=== PATIENT | female | born 1985 | race Caucasian/White ===

== ENCOUNTER → 2019-06-06 | Day surgery (SDC) | payer OTHER ==
[2019-06-03 13:12] LABS: BASOPHILS # (AUTO) 0.1 (0.0-0.1); BASOPHILS % 0.9 % (0.0-1.0); EOSINOPHILS # (AUTO) 0.7 (0.0-0.4); EOSINOPHILS % 8.7 % (0.0-6.0); HEMOGLOBIN 13.4 g/dL (12.0-16.0); LYMPHOCYTES # (AUTO) 2.5 (1.0-3.2); LYMPHOCYTES % 32.8 % (18.0-39.1); MEAN CORPUSCULAR HEMOGLOBIN 29.3 pg (28-32); MEAN CORPUSCULAR HGB CONC 31.9 g/dL (31-35); MEAN CORPUSCULAR VOLUME 91.7 fL (81-99); MONOCYTES # (AUTO) 0.5 (0.2-0.8); MONOCYTES % 7.1 % (4.4-11.3); NEUTROPHILS # (AUTO) 3.8 (2.1-6.9); NEUTROPHILS % 50.2 % (38.7-80.0); PLATELET COUNT 425 x10e3/uL (140-360); RED BLOOD COUNT 4.58 x10e6/uL (3.6-5.1); RED CELL DISTRIBUTION WIDTH 12.5 % (11.7-14.4)
[2019-06-03 13:29] LABS: ANION GAP 12.1 mmol/L (8-16); BLOOD UREA NITROGEN 6 mg/dL (7-26); BUN/CREATININE RATIO 8 (6-25); CALCIUM 9.5 mg/dL (8.4-10.2); CARBON DIOXIDE 28 mmol/L (22-29); CHLORIDE 101 mmol/L (98-107); CREATININE, SERUM 0.71 mg/dL (0.57-1.11); EST GLOMERULAR FILTRATION RATE > 60 ML/MIN (60-); GLUCOSE 87 mg/dL (74-118); POTASSIUM 4.1 mmol/L (3.5-5.1); SODIUM 137 mmol/L (136-145)
--- NOTE | 2019-06-03 13:42 | Diagnostic Imaging Report ---
EXAMINATION: CHEST 2 VIEWS INDICATION: Preoperative COMPARISON: None FINDINGS: TUBES and LINES: None. LUNGS: The lung volumes are normal. No focal consolidation or pulmonary edema. PLEURA: No pleural effusion or pneumothorax. HEART AND MEDIASTINUM: The cardiomediastinal silhouette is normal in size and contour. BONES AND SOFT TISSUES: No acute fracture or dislocation. UPPER ABDOMEN: No free air under the diaphragm. IMPRESSION: No focal pneumonia or pulmonary edema. Signed by: Israel Singh MD on 06/03/2019 1:38 PM
[~2019-06-06] MED LIST: ACETAMINOPHEN 1000 MG/100 ML IV ONE; BUPIVACAINE HCL 0.5% INJ 30 ML VIAL INJ ONE; CEFAZOLIN SOD 1 GM/NS 50ML 100 ML IV ONE; DEXAMETHASONE SOD PHOS INJ 4 MG/ML VIAL ONE; FENTANYL CITRATE/PF 100MCG/2 ML INJ ONE; HYDROCODONE/APAP 10MG-325MG TAB ONE; LIDOCAINE HCL 2% LOCAL INJ 5 ML SDV VIAL INJ ONE; MIDAZOLAM HCL 2 MG/2 ML VIAL ONE; NEOSTIGMINE 1 MG/ML 10ML VIAL ONE; ONDANSETRON HCL INJ 2MG/ML 2ML 2 MG/ML VIAL ONE; PROPOFOL IV EMULSION 10 MG/ML 20 ML VIAL ONE; SEVOFLURANE INHAL SOLN 250 ML PEN BTL ONE
[2019-06-06 12:14] VITALS: BP 124/80
--- OUTSIDE RECORDS SUMMARY | 2019-06-09 12:31 | XMS REPORT | Clinical Summary ---
Author Author [facility] Organization [facility] Address Unknown Phone Unavailable Care Team Providers Care Guest Attendant Name Role Phone Daysi Limon MD PCP Allergies Comments Active Allergy Reactions Severity Noted Date vomitting Aspirin GI Medium 09/12/2016 Intolerance Medications End Date Status Medication Sig Dispensed Refills Start Date Active ibuprofen (ADVIL) 200 MG Take 200 mg 0 tablet by mouth every 6 (six) hours as needed for mild pain. 03/13/2019 Discontinued acetaminophen-codeine TK 1 T PO Q 0 (TYLENOL WITH CODEINE #3) 4 TO 6 H PRN 7 300-30 mg per tablet FOR DENTAL PAIN Active Problems Problem Noted Date Unintentional weight loss 11/05/2017 Overview: C/O 10 lbs weight loss over 1 year- unintentional weight loss denies pain, fever, nausea, vomitting, dizziness, SOB, Cough ,CP,headaches or any other symptoms Reports Increased Thirst and urination- drinks diet coke every day 4-5 cans does not drink water Smokes 5-6 cigarettes daily No exercise or dietary modification, Hr brother recently got diagnosed with Diabetes in his 30's and she is concerned she may have Diabetes. Last Assessment & Plan: Check Labs, advised to stop drinking sodas, switch to drinking water recommended Smoking Cessation POC finger stick- 92 Current smoker 11/05/2017 Overview: Smokes 5-6 cigarettes for last 23 years Denies cough, SOB, CP, Wheezing L ast Assessment & Plan: counselled on Smoking Cessation and patient is ready to quit but refused medications at this time all risks/ benefits of smoking discussed with patient and she wants to try cessation without use of medication at this time. 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 Obstructive sleep apnea syndrome 09/12/2016 Sleep disorder 09/12/2016 Encounters Care Team Description Date Type Specialty Daysi Limon MD Thoracogenic scoliosis of thoracic region (Primary Dx); Chronic midline thoracic back pain; Acute nonintractable headache, unspecified headache type; Obesity (BMI 30.0-34.9) 03/13/2019 Office Visit Family Medicine after 06/08/2018 Immunizations Name Dates Previously Given Next Due Hep B, Unspecified 11/26/2006 Family History Medical History Relation Name Comments Diabetes type II Brother Kar Banerjee No Known Problems Father Hypertension Mother Relation Name Status Comments Brother Kar Banerjee Alive Father Alive Mother Alive Social History Date Tobacco Use Types Packs/Day Years Used Quit: 10/24/2016 Current Every Day Smoker Cigarettes 0.25 22 Smokeless Tobacco: Never Used Tobacco Cessation: Ready to Quit: Yes; Counseling Given: Yes Comments: Patient states she is a social smoker. Alcohol Use Drinks/Week oz/Week Comments No Sex Assigned at Date Recorded Not on file Industry Job Start Date Occupation Not on file Not on file Not on file Travel End Travel History Travel Start No recent travel history available. Last Filed Vital Signs Time Taken Vital Sign Reading 03/13/2019 11:37 AM CDT Blood Pressure 121/75 03/13/2019 11:37 AM CDT Pulse 75 03/13/2019 11:37 AM CDT Temperature 36.8 C (98.2 F) 03/13/2019 11:37 AM CDT Respiratory Rate 16 03/13/2019 11:37 AM CDT Oxygen Saturation 99% - Inhaled Oxygen - Concentration 03/13/2019 11:37 AM CDT Weight 93 kg (205 lb) 03/13/2019 11:37 AM CDT Height 165.1 cm (5' 5") 03/13/2019 11:37 AM CDT Body Mass Index 34.11 Plan of Treatment Health Maintenance Due Date Last Done Comments INFLUENZA VACCINE 06/26/2019 Results Not on fileafter 06/08/2018 Insurance Type Payer Benefit Subscriber ID Effective Phone Address Plan / Dates Group xxxxxxxxx 2019- [facility] Advance Directives Patient has advance care planning documents on file. For more information, hakeem thakkar contact: Ryan Hernández [address] [place] [address]
--- OUTSIDE RECORDS SUMMARY | 2019-06-09 12:32 | XMS REPORT | Continuity of Care Document ---
Author Author [employer] Address Unknown Phone Unavailable Care Team Providers Care Day Camp Unit Leader Name Role Phone Practice Management e-Tools Information [employer] Unavailable Unavailable Problems Problem Status Onset Date Classification Date Reported Comments Source Influenza-like symptoms 09/30/2017 Diagnosis 10/04/2017 [facility] Exposure to Influenzavirus 09/30/2017 Diagnosis 10/04/2017 [facility] Headache 09/30/2017 Diagnosis 10/04/2017 [facility] Acute upper respiratory infection 07/05/2016 Diagnosis 07/05/2016 [facility] Allergic rhinitis 07/05/2016 Diagnosis 07/05/2016 [facility] Smoker Problem 10/04/2017 [facility] Otitis Media Problem 10/04/2017 [facility] Acute Upper Respiratory Infection Problem 10/04/2017 [facility] Allergic Rhinitis Problem 10/04/2017 [facility] Influenza Problem 10/04/2017 [facility] Medications Medication Details Route Status Patient Instructions Ordering Provider Order Date Source Oseltamivir 75 MG Oral Capsule [Tamiflu] Tamiflu 75 mg capsule Take 1 capsule(s) twice a day by oral route for 5 days. Active [facility] Amoxicillin 500 MG Oral Capsule amoxicillin 500 mg capsule TAKE ONE CAPSULE BY MOUTH EVERY 6 HOURS UNTIL ALL TAKEN Active [facility] Brompheniramine Maleate 0.4 MG/ML / Dextromethorphan Hydrobromide 2 MG/ML / Pseudoephedrine Hydrochloride 6 MG/ML Oral Solution [Bromfed DM] Bromfed DM 2 mg-30 mg-10 mg/5 mL syrup Take 10 mL every 6 hours by oral route as needed for cough. Active [facility] chlorhexidine gluconate 1.2 MG/ML Mouthwash chlorhexidine gluconate 0.12 % mouthwash RINSE AND SWISH WITH 1/2 OZ. USE 2 TIMES PER DAILY AFTER THOFOUGH BRUSHING Active [facility] Fluticasone propionate 0.05 MG/ACTUAT Metered Dose Nasal [place] fluticasone 50 mcg/actuation nasal spray,suspension USE 2 SPRAYS INTO EACH NOSTRIL EVERY DAY Active [facility] Acetaminophen 300 MG / Hydrocodone Bitartrate 5 MG Oral Tablet hydrocodone 5 mg-acetaminophen 300 mg tablet TAKE 1 TABLET BY MOUTH EVERY 4 TO 6 HOURS NEEDED FOR PAIN Active [facility] Sodium Fluoride 0.011 MG/MG Toothpaste [Prevident] PreviDent 5000 Booster Plus 1.1 % dental paste APPLY TO TOOTHBRUSH & BRUSH TEETH FOR 1 MIN, SPIT OUT EXCESS & DO NOT RINSE EAT OR DRINK FOR 30 MIN Active [facility] levocetirizine dihydrochloride 5 MG Oral Tablet [Xyzal] Xyzal 5 mg tablet Take 1 tablet(s) every day by oral route for 30 days. Active [facility] Brompheniramine Maleate 0.4 MG/ML / Dextromethorphan Hydrobromide 2 MG/ML / Pseudoephedrine Hydrochloride 6 MG/ML Oral Solution urhufkspibewwwm-vezqzqknfsbmyto-AV 2 mg-30 mg-10 mg/5 mL syrup GIVE 2 TEASPOONFUL BY MOUTH EVERY 6 HOURS NEEDED Active [facility] levocetirizine dihydrochloride 5 MG Oral Tablet levocetirizine 5 mg tablet TAKE 1 TABLET BY MOUTH EVERY DAY Active [facility] Oseltamivir 75 MG Oral Capsule oseltamivir 75 mg capsule Take 1 capsule every day by oral route as directed for 10 days. Active [facility] Allergies, Adverse Reactions, Alerts Substance Category Reaction Severity Reaction type Status Date Reported Comments Source Aspirin Vomiting Mild to Moderate Allergy to substance 09/19/2013 [facility] Immunizations No Data Provided for This Section Results Order Name Results Value Reference Range Date Interpretation Comments Source Influenza A negative 09/30/2017 [facility] Influenza B negative 09/30/2017 [facility] Influenza A positive 03/29/2016 [facility] Influenza B negative 03/29/2016 [facility] Pathology Reports No Data Provided for This Section Diagnostic Reports No Data Provided for This Section Consultation Notes No Data Provided for This Section Discharge Summaries No Data Provided for This Section History and Physicals No Data Provided for This Section Vital Signs Vital Sign Value Date Comments Source Diastolic (mm Hg) 80 09/30/2017 [facility] Height 64 09/30/2017 [facility] Systolic (mm Hg) 120 09/30/2017 [facility] Weight 163 09/30/2017 [facility] Diastolic (mm Hg) 82 07/05/2016 [facility] Height 64 07/05/2016 [facility] Systolic (mm Hg) 125 07/05/2016 [facility] Weight 195 07/05/2016 [facility] Diastolic (mm Hg) 87 03/29/2016 [facility] Height 67 03/29/2016 [facility] Systolic (mm Hg) 132 03/29/2016 [facility] Weight 185 03/29/2016 [facility] Encounters Location Location Details Encounter Type Encounter Number Reason For Visit Attending Provider ADM Date DC Date Status Source [place] - [facility] - [id number] Iris Tidwell, METAL ENGRAVER: [address] [facility] [place] [address], Ph. [id number] Iris Tidwell 03/29/2016 [facility] [place] [facility] - [id number] Clarisa Chalo, METAL ENGRAVER: [address], [place] [address], Ph. [id number] Clarisa Chalo 07/05/2016 [facility] [place] [facility] - [id number] Lora Snow, METAL ENGRAVER-C: [address] [place] [address], Ph. [id number] Lora Snow 09/30/2017 [facility] [place] - [facility] - [id number] Lora Snow, METAL ENGRAVER-C: [address] [place] [address], Ph. [id number] Lora Snow 09/30/2017 [facility] Procedures No Data Provided for This Section Assessment and Plan No Data Provided for This Section Plan of Care No Data Provided for This Section Social History Social History Date Source Smoking Status Current Every Day Smoker 09/19/2013 [facility] Family History No Data Provided for This Section Advance Directives No Data Provided for This Section Functional Status No Data Provided for This Section
--- OUTSIDE RECORDS SUMMARY | 2019-06-09 12:32 | XMS REPORT | Encounter Summary ---
Author Organization Unknown Address [address] [place] [address] Phone [phone] Reason for Visit Medical Complaint Instructions 1. Influenza-like symptoms rapid flu (A+B) 2. Exposure to Influenzavirus oseltamivir 75 mg capsule 3. Headache headache: care instructions Discussion Note Pt is in NAD; Verbalizes understanding of all instructions with no questions at this time. Plan of Care Patient Instructions Alternate with Ibuprofen and acetaminophen every 4hrs as needed for fever/headache. Proper hydration and rest. Return to school of fever free for 24 hrs. Start oseltamivir as directed for influenza exposure. In case of an emergency call 911 or go to nearest ER. Reminders Provider Appointments None recorded. Lab Rapid Flu (A+B) 10/04/2017 [facility] Referral None recorded. Procedures None recorded. Surgeries None recorded. Imaging None recorded. Medications Name Start Date qvdevbypvczwgmt-rgyunaiiypskbvl-KG 2 mg-30 mg-10 mg/5 mL syrup GIVE 2 TEASPOONFUL BY MOUTH EVERY 6 HOURS NEEDED chlorhexidine gluconate 0.12 % mouthwash RINSE AND SWISH WITH 1/2 OZ. USE 2 TIMES PER DAILY AFTER THOFOUGH BRUSHING fluticasone 50 mcg/actuation nasal spray,suspension USE 2 SPRAYS INTO EACH NOSTRIL EVERY DAY hydrocodone 5 mg-acetaminophen 300 mg tablet TAKE 1 TABLET BY MOUTH EVERY 4 TO 6 HOURS NEEDED FOR PAIN levocetirizine 5 mg tablet TAKE 1 TABLET BY MOUTH EVERY DAY oseltamivir 75 mg capsule Take 1 capsule every day by oral route as directed for 10 days. PreviDent 5000 Booster Plus 1.1 % dental paste APPLY TO TOOTHBRUSH & BRUSH TEETH FOR 1 MIN, SPIT OUT EXCESS & DO NOT RINSE EAT OR DRINK FOR 30 MIN Medications Administered None recorded. Vitals Height Weight BMI Blood Pressure 5 ft 4 in 163 lbs 28 kg/m2 120/80 mm[Hg] Lab Results Date Name Specimen Result Interpretation Description Value Range Status Address Rapid Flu (A+B) Influenza a negative [facility]: [address] [facility] Influenza B negative [facility]: [address] [facility] Allergies Code Code System Name Reaction Severity Status Onset 1191 RxNorm Aspirin Vomiting Mild to Moderate Active Problems Name Status Onset Date Source Smoker Active Encounter Otitis Media Active Encounter Acute Upper Respiratory Infection Active Encounter Allergic Rhinitis Active Encounter Influenza Active Encounter Procedures None recorded. Vaccine List None recorded. Social History Smoking Status Current Every Day Smoker Past Encounters 09/30/2017 Influenza-like Symptoms; Exposure to Influenzavirus; Headache Lora dEy, [facility]: [address] [place] [address], Ph. History of Present Illness Headache Reported By: Patient HPI: Location: frontal. Quality: not the worst headache ever, similar to previous headaches. Severity: mild, pain level 5/10. Duration: constant. Onset/Timing: gradual, still present. Context: not related to trauma; Pt has h/o migraine headaches. Modifying factors: OTC medication, sleep, rest. Associated Symptoms: no fever/chills, no muscle aches, no vomiting, no sensitivity to light, tearing/watery eyes, no confusion, no slurred speech, no preceeding aura, no double vision, normal feeling/sensation, no motor paralysis, no dizziness, no sleep disturbances, no nosebleeds, no hoarseness, no sore throat, no hearing loss, headache; body aches and chills Budrxyn-Dpzrf-Bdr Reported By: Patient HPI: Quality: symptoms worse during the day. Duration: constant. Context: no tick/insect bites, no recent travel, no new medications, ill contacts. Associated Symptoms: no fever/chills, no muscle aches, no rash, no lethargy, headache; chills and body aches. Modifying Factors nothing gives relief Review of Systems:ROS as noted in the HPI Review of Systems Basic Reported By: Patient Physical Exam Adult Basic, Adult Female Complete, Adult Male Complete Reported By: Patient Constitutional: General Appearance: healthy-appearing, well-nourished, well-developed. Level of Distress: NAD. Ambulation: ambulating normally Psychiatric: Mental Status: active and alert. Orientation: to time, to place, to person Eyes: Lids and Conjunctivae: non-injected, no discharge, no pallor. Pupils: PERRLA. Corneas: grossly intact. EOM: EOMI. Lens: clear. Vision: peripheral vision grossly intact Nsy-Khhf-Fkycm-Throat: Ears: no lesions on external ear, no outer ear tenderness, EACs clear, TMs clear. Hearing: no hearing loss. Nose: no lesions on external nose, nares patent, no septal deviation, nasal passages clear, no sinus tenderness, no nasal discharge. Lips, Teeth, and Gums: no mouth or lip ulcers, no bleeding gums, normal dentition. Oropharynx: moist mucous membranes, no erythema, no exudates, tonsils not enlarged Neck: Neck: supple. Lymph Nodes: no cervical LAD Lungs: Respiratory effort: no dyspnea, no tachypnea, no use of accessory muscles, no intercostal retractions. Auscultation: breath sounds normal, good air movement Cardiovascular: Heart Auscultation: RRR, no murmurs Neurologic: Gait and Station: normal gait, normal station. Cranial Nerves: grossly intact. Reflexes: DTRs 2+ bilaterally throughout. Coordination and Cerebellum: ixgczb-uc-kayd intact, no tremor
--- OUTSIDE RECORDS SUMMARY | 2019-06-09 12:33 | XMS REPORT | Encounter Summary ---
Author Organization Unknown Address [address] [place] [address] Phone [phone] Reason for Visit Medical Complaint Instructions 1. Influenza Tamiflu 75 mg capsule rapid flu (A+B) Discussion Note: None recorded. Patient educational handouts: No information available. Plan of Care Reminders Provider Appointments None recorded. Lab Rapid Flu (A+B) 03/29/2016 [facility] Referral None recorded. Procedures None recorded. Surgeries None recorded. Imaging None recorded. Medications Name Start Date Tamiflu 75 mg capsule Take 1 capsule(s) twice a day by oral route for 5 days. Medications Administered None recorded. Vitals Height Weight BMI Blood Pressure 5 ft 7 in 185 lbs 29 132/87 Lab Results Date Name Result Description Value Range Status Rapid Flu (A+B) Influenza a positive Influenza B negative Allergies Name Reaction Severity Onset Aspirin Vomiting Problems Name Status Onset Date Source Smoker Active Encounter Otitis Media Active Encounter Acute Upper Respiratory Infection Active Encounter Allergic Rhinitis Active Encounter Influenza Active Encounter Procedures None recorded. Vaccine List None recorded. Social History Smoking Status Current Every Day Smoker Past Encounters 03/29/2016 Influenza JT Newell: [address] [place] [address], Ph. History of Present Illness Ckvvs-Uzxcrrslsp-Vghjtkl Reported By: Patient HPI: Location: head/sinuses. Quality: productive cough, nasal/sinus congestion. Duration: 2days. Severity: moderate. Onset/Timing: gradual. Context: no sick contacts, no foreign travel, non-smoker. Associated Symptoms: no shortness of breath, no wheezing, no change in number of pillows needed to sleep at night, no sweats, no significant weight gain, no significant weight loss, no morning cough, no sore throat, no vomiting, no diarrhea, no rash, no nausea, yellow- green, thick sputum Review of Systems Basic Reported By: Patient Constitutional: Constitutional: fever Eyes: Eyes: no eye complaints Peit-Xpiy-Wfohz-Throat: Ears: no ear complaints. Nose: nose/sinus problems. Mouth/Throat: no bleeding gums, no mouth complaints, no teeth problems, sore throat Cardiovascular: Cardiovascular: no chest pain, no shortness of breath, no known heart murmur Respiratory: Respiratory: no wheezing, no shortness of breath, cough Gastrointestinal: Gastrointestinal: no abdominal pain, no vomiting / diarrhea Genitourinary: Genitourinary: no urinary complaints, no discharge Musculoskeletal: Musculoskeletal: no muscle aches, no muscle weakness, no arthralgias/joint pain, no back pain Skin: Skin: no abnormal / changing mole, no jaundice, no rashes Neurologic: Neurologic: no loss of consciousness, no weakness, no numbness, no seizures, no dizziness, no headaches Physical Exam Adult Female Complete, Adult Basic Constitutional: General Appearance: healthy-appearing, well-nourished, well-developed. Level of Distress: NAD. Ambulation: ambulating normally Psychiatric: Mental Status: active and alert. Orientation: to time, to place, to person Eyes: Pupils: PERRLA Lqv-Ogas-Jaafd-Throat: Ears: no lesions on external ear, no outer ear tenderness, EACs clear, TMs clear. Hearing: no hearing loss. Nose: no lesions on external nose, nares patent, no septal deviation, nasal passages clear, no sinus tenderness, nasal discharge--rhinorrhea, post nasal drip. Lips, Teeth, and Gums: no mouth or lip ulcers, no bleeding gums, normal dentition. Oropharynx: moist mucous membranes, no exudates, tonsils not enlarged, erythema Neck: Neck: supple, trachea midline. Lymph Nodes: no cervical LAD, no supraclavicular LAD. Thyroid: no enlargement, non-tender Lungs: Respiratory effort: no dyspnea, no tachypnea, no use of accessory muscles, no intercostal retractions. Percussion: no dullness, flatness, or hyperresonance. Auscultation: breath sounds normal Cardiovascular: Heart Auscultation: RRR, no murmurs Musculoskeletal:: Motor Strength and Tone: normal motor strength. Joints, Bones, and Muscles: normal movement of all extremities. Extremities: no cyanosis, no edema Neurologic: Gait and Station: normal gait, normal station. Cranial Nerves: grossly intact. Sensation: grossly intact
--- OUTSIDE RECORDS SUMMARY | 2019-06-09 12:33 | XMS REPORT | Encounter Summary ---
Author Organization Unknown Address [address] [place] [address] Phone [phone] Reason for Visit Medical Complaint Instructions 1. Influenza-like symptoms 2. Exposure to Influenzavirus oseltamivir 75 mg [...] ER. Reminders Provider Appointments None recorded. Lab None recorded. Referral None recorded. Procedures None recorded. Surgeries None recorded. Imaging None recorded. Medications Name Start Date fkxsppcgsytpyub-trxhdkumwraqrtj-ZW 2 mg-30 mg-10 mg/5 mL syrup GIVE [...] lbs 28 kg/m2 120/80 mm[Hg] Lab Results None recorded. Allergies Code Code System Name Reaction Severity [...] Influenza-like Symptoms; Exposure to Influenzavirus; Headache Lora Gomezroy, [employer]-C: [address] [place] [address], Ph. History of Present Illness Headache Reported [...] hearing loss, headache; body aches and chills Kwgljts-Txpbn-Ugn Reported By: Patient HPI: Quality: symptoms worse [...] Lens: clear. Vision: peripheral vision grossly intact Wec-Peac-Iscwd-Throat: Ears: no lesions on external ear, no [...] DTRs 2+ bilaterally throughout. Coordination and Cerebellum: zjdsqo-bw-qtkr intact, no tremor
--- OUTSIDE RECORDS SUMMARY | 2019-06-09 12:33 | XMS REPORT | Encounter Summary ---
Author Organization Unknown Address [address] [place] [address] Phone [phone] Reason for Visit Medical Complaint Instructions 1. Acute upper respiratory infection upper respiratory infection (cold): care instructions Bromfed DM 2 mg-30 mg-10 mg/5 mL syrup 2. Allergic rhinitis fluticasone 50 mcg/actuation nasal spray,suspension allergies: care instructions Xyzal 5 mg tablet 3. Smoker stopping smoking: care instructions Discussion Note: None recorded. Plan of Care Patient Instructions Please drink plenty of fluids, rest, good hand washing, cover your mouth while coughing and sneezing. Take ibuprofen or tylenol every 6 hours as needed for fever and aches. Follow up with PCP/UC/ER or seek care if symptomsget worseor no improvement in 3 to 4 days. Patient verbalizes understanding and agrees to the plan. Reminders Provider Appointments None recorded. Lab None recorded. Referral None recorded. Procedures None recorded. Surgeries None recorded. Imaging None recorded. Medications Name Start Date amoxicillin 500 mg capsule TAKE ONE CAPSULE BY MOUTH EVERY 6 HOURS UNTIL ALL TAKEN Bromfed DM 2 mg-30 mg-10 mg/5 mL syrup Take 10 mL every 6 hours by oral route as needed for cough. chlorhexidine gluconate 0.12 % mouthwash RINSE AND SWISH WITH 1/2 OZ. USE 2 TIMES PER DAILY AFTER THOFOUGH BRUSHING fluticasone 50 mcg/actuation nasal spray,suspension Inhale 2 sprays into each nostril EVERY DAY hydrocodone 5 mg-acetaminophen 300 mg tablet TAKE 1 TABLET BY MOUTH EVERY 4 TO 6 HOURS NEEDED FOR PAIN PreviDent 5000 Booster Plus 1.1 % dental paste APPLY TO TOOTHBRUSH & BRUSH TEETH FOR 1 MIN, SPIT OUT EXCESS & DO NOT RINSE EAT OR DRINK FOR 30 MIN Tamiflu 75 mg capsule Take 1 capsule(s) twice a day by oral route for 5 days. Xyzal 5 mg tablet Take 1 tablet(s) every day by oral route for 30 days. Medications Administered None recorded. Vitals Height Weight BMI Blood Pressure 5 ft 4 in 195 lbs 33.5 125/82 Lab Results None recorded. Allergies Name Reaction Severity Onset Aspirin Vomiting Mild to Moderate Problems Name Status Onset Date Source Smoker Active Encounter Otitis Media Active Encounter Acute Upper Respiratory Infection Active Encounter Allergic Rhinitis Active Encounter Influenza Active Encounter Procedures None recorded. Vaccine List None recorded. Social History Smoking Status Current Every Day Smoker Past Encounters 07/05/2016 Acute Upper Respiratory Infection; Allergic Rhinitis; Smoker Clarisa Isabel, [facility]: [address] [place] [address], Ph. History of Present Illness Cyapa-Efmzunrxun-Ybglebi Reported By: Patient HPI: Location: head/sinuses. Quality: productive cough, colored phlegm, nasal/sinus congestion, dry cough. Duration: 3days. Severity: moderate. Onset/Timing: sudden. Context: no sick contacts, no foreign travel, non-smoker, allergies. Modifying factors: OTC medication. Associated Symptoms: no sputum production, no shortness of breath, no wheezing, no change in number of pillows needed to sleep at night, no sweats, no significant weight gain, no significant weight loss, no morning cough, no sore throat, no vomiting, no diarrhea, no rash, no nausea Notes: Pt also reports bilateral ear pain/pressure, sneezing and watery eyes. Review of Systems Basic Reported By: Patient Constitutional: Constitutional: fever Eyes: Eyes: no eye complaints; watery eyes Azte-Iviq-Hblce-Throat: Ears: ear pain. Nose: nose/sinus problems. Mouth/Throat: no sore throat, no bleeding gums, no mouth complaints, no teeth problems Cardiovascular: Cardiovascular: no chest pain, no shortness of breath, no known heart murmur Respiratory: Respiratory: no wheezing, no shortness of breath, cough Gastrointestinal: Gastrointestinal: no abdominal pain, no vomiting / diarrhea Genitourinary: Genitourinary: no urinary complaints, no discharge Musculoskeletal: Musculoskeletal: no muscle weakness, no arthralgias/joint pain, no back pain, muscle aches Skin: Skin: no abnormal / changing mole, no jaundice, no rashes Neurologic: Neurologic: no loss of consciousness, no weakness, no numbness, no seizures, no dizziness, headache Physical Exam Adult Basic, Adult Female Complete Constitutional: General Appearance: healthy-appearing, well-nourished, well-developed. Level of Distress: NAD. Ambulation: ambulating normally Psychiatric: Mental Status: active and alert. Orientation: to time, to place, to person Eyes: Lids and Conjunctivae: non-injected, no discharge, no pallor. Pupils: PERRLA. EOM: EOMI. Lens: clear. Sclerae: non-icteric Jyg-Mksx-Iqqam-Throat: Ears: no lesions on external ear, no outer ear tenderness, EACs clear, TMs clear, middle ear fluid. Hearing: no hearing loss. Nose: no lesions on external nose, nares patent, no septal deviation, nasal passages clear, no sinus tenderness, nasal discharge--rhinorrhea, post nasal drip. Lips, Teeth, and Gums: no mouth or lip ulcers, no bleeding gums, normal dentition. Oropharynx: moist mucous membranes, no exudates, tonsils not enlarged, erythema Neck: Neck: supple. Lymph Nodes: no cervical LAD Lungs: Respiratory effort: no dyspnea, no tachypnea. Auscultation: breath sounds normal Cardiovascular: Heart Auscultation: RRR, no murmurs Neurologic: Gait and Station: normal gait
--- OUTSIDE RECORDS SUMMARY | 2019-06-09 12:34 | XMS REPORT ---
Author Author [facility] Address Unknown Phone Unavailable Care Team Providers Care Financial Cost Analyst Name Role Phone CHARLENE WU Unavailable Unavailable Problems This patient has no known problems. Allergies, Adverse Reactions, Alerts This patient has no known allergies or adverse reactions. Medications This patient has no known medications. Results Test Description Test Time Test Comments Text Results Atomic Results Result Comments CHEST 2 VIEWS 2019-06-03 13:37:00 [facility] [address] [address] Patient Name: NELSON MATUTE MR #: [id number] : 1985 Age/Sex: 34/F Req #: [id number] [facility] Physician: Ordered by: CHARLENE WU DPM Report #: [id number] Location: OR Room/Bed: Procedure: [id number] DX/CHEST 2 VIEWS Exam Date: Exam Time: REPORT STATUS: Signed EXAMINATION: CHEST 2 VIEWS INDICATION: Preoperative COMPARISON: None FINDINGS: TUBES and LINES: None. LUNGS: The lung volumes are normal. No focal consolidation or pulmonary edema. PLEURA: No pleural effusion or pneumothorax. HEART AND MEDIASTINUM: The cardiomediastinal silhouette is normal in size and contour. BONES AND SOFT TISSUES: No acute fracture or dislocation. UPPER ABDOMEN: No free air under the diaphragm. IMPRESSION: No focal pneumonia or pulmonary edema. Signed by: Lali Singh MD on 06/03/2019 1:38 PM Dictated By: LALI SINGH MD 133 Transcribed By: AARON on 06/03/19 1333 COPY TO: CHARLENE WU DPM
--- NOTE | 2019-06-26 18:35 | Operative Report ---
DATE OF PROCEDURE: 06/06/2019 SURGEON: Andrea Osborn DPM PREOPERATIVE DIAGNOSIS: Ruptured anterior talofibular ligament, left foot. POSTOPERATIVE DIAGNOSES: Ruptured anterior talofibular ligament, left foot. TITLE OF OPERATION: Repair of the anterior talofibular ligament of the left foot primary. ANESTHESIA: General endotracheal. HEMOSTASIS: Left thigh tourniquet at 350 mmHg. PROCEDURE IN DETAIL: The patient was taken to the operating room in a mildly sedated state and placed on the operating table in the supine position. Following induction of general anesthetic, left lower extremity was elevated to 60 degrees to exsanguinate before inflating the pneumatic thigh tourniquet to 350 mmHg to create hemostasis. Left lower extremity was placed on the operating table to perform the following procedures. Procedure #1 is the anterior talofibular ligament repair of the left foot. An approximate 3 cm transverse incision was made overlying the anterior talofibular ligament at the lateral aspect of the left foot. Incision was deepened via sharp and blunt dissection at the level of the joint capsule and remnants of the ATFL, which were noted to be ruptured. The attenuated ligament was ellipsed and after doing so, an Arthrex anchor Bio-Corkscrew was inserted into the lateral aspect of the fibula from distal to proximal and capped and inserted. The FiberWire was then used to repair the newly created anterior talofibular ligament with full closure and eversion. The area was irrigated and human tissue allograft was used to supplement the repair. The deep closure with 3-0 Vicryl, subcutaneous closure with 4-0 Vicryl, and skin closure with 4-0 nylon. The area of the surgery was then blocked with 0.5 Marcaine, released pneumatic thigh tourniquet, showed a normal hyperemic flush to all digits of left foot. Appropriate postoperative splint ties were applied. The patient left the operating room, vital signs stable, in apparent satisfactory condition and tolerated both the anesthesia and procedure very well. BOBBY Delaney/PAULAL /[id number]
== END | disposition home or self-care (01) ==
LOC: OR 08:23
PROVIDERS: ATTEND Podiatrist Foot Surgery
DX: S93.692A Other sprain of left foot, initial encounter (principal); F41.9 Anxiety disorder, unspecified; F32.9 Major depressive disorder, single episode, unspecified; F17.200 Nicotine dependence, unspecified, uncomplicated; X58.XXXA Exposure to other specified factors, initial encounter; Z88.6 Allergy status to analgesic agent; Z01.810 Encounter for preprocedural cardiovascular examination; Z01.812 Encounter for preprocedural laboratory examination; Z01.818 Encounter for other preprocedural examination
CPT/HCPCS: 27695; 36415; 71046; 76000; 80048; 81025; 85025; 93005; C1713; J0131; J0690; J1100; J2001; J2250; J2405; J2704; J2710; Q4100; J3010

== ENCOUNTER 2024-07-15 02:17 | Emergency (ER) | payer OTHER ==
[~2024-07-15] VITALS: Ht 170.2 cm; Wt 99.8 kg
[2024-07-15 02:29] VITALS: RESP 20; TEMP 98.7
[2024-07-15] MEDS: KETOROLAC TROMETHAMINE 30 MG/ML VIAL IV STA (02:53)
[2024-07-15] MEDS: ONDANSETRON HCL INJ 2MG/ML 2ML 2 MG/ML VIAL IV STA (02:53)
[2024-07-15 03:01] LABS: BASOPHILS # (AUTO) 0.1 (0.0-0.1); BASOPHILS % 0.9 % (0.0-1.0); EOSINOPHILS # (AUTO) 0.8 (0.0-0.4); EOSINOPHILS % 7.5 % (0.0-6.0); HEMATOCRIT 39.5 % (34.2-44.1); HEMOGLOBIN 12.8 g/dL (12.0-16.0); LYMPHOCYTES # (AUTO) 3.2 (1.0-3.2); LYMPHOCYTES % 30.8 % (18.0-39.1); MEAN CORPUSCULAR HEMOGLOBIN 29.6 pg (28-32); MEAN CORPUSCULAR HGB CONC 32.4 g/dL (31-35); MEAN CORPUSCULAR VOLUME 91.2 fL (81-99); MONOCYTES # (AUTO) 0.7 (0.2-0.8); MONOCYTES % 6.5 % (4.4-11.3); NEUTROPHILS # (AUTO) 5.6 (2.1-6.9); NEUTROPHILS % 53.7 % (38.7-80.0); PLATELET COUNT 420 x10e3/uL (140-360); RED BLOOD COUNT 4.33 x10e6/uL (3.6-5.1); RED CELL DISTRIBUTION WIDTH 12.9 % (11.7-14.4); WHITE BLOOD COUNT 10.32 x10e3/uL (4.8-10.8)
[2024-07-15 03:16] LABS: ALBUMIN 3.9 g/dL (3.5-5.0); ALBUMIN/GLOBULIN RATIO 1.1 (0.8-2.0); ANION GAP 14.8 mmol/L (8-16); BILIRUBIN,TOTAL 0.4 mg/dL (0.2-1.2); CALCIUM 9.3 mg/dL (8.4-10.2); CREATININE, SERUM 0.79 mg/dL (0.57-1.11); POTASSIUM 3.8 mmol/L (3.5-5.1); TOTAL PROTEIN 7.5 g/dL (6.5-8.1)
[2024-07-15 03:17] LABS: LIPASE 25 U/L (8-78)
[2024-07-15 04:29] LABS: BILIRUBIN,URINE NEGATIVE (NEGATIVE); CLARITY,URINE CLEAR (CLEAR); COLOR,URINE YELLOW (YELLOW); GLUCOSE, URINE NEGATIVE (NEGATIVE); KETONES,URINE NEGATIVE (NEGATIVE); LEUKOCYTE ESTERASE ,URINE NEGATIVE (NEGATIVE); NITRITE,URINE NEGATIVE (NEGATIVE); PH,URINE 5.5 (5 - 7); PROTEIN,URINE DIPSTICK NEGATIVE (NEGATIVE); URINE UROBILINOGEN 1 mg/dL (0.2 - 1)
[2024-07-15 04:30] VITALS: PULSE 70; O2SAT 95
[2024-07-15] MEDS ORDERED: ONDANSETRON ODT4 MG SL (04:50)
[2024-07-15] MEDS ORDERED: KETOROLAC TROME10 MG PO (04:50)
[2024-07-15 04:58] LABS: BACTERIA,URINE MODERATE /HPF; EPITHELIAL CELLS,URINE MODERATE /LPF; RBC,URINE 0-5 /HPF (0-5); WBC,URINE (MAN) 0-5 /HPF (0-5)
== END 2024-07-15 05:10 | disposition home or self-care (01) ==
LOC: ER 02:20
DX: R10.30 Lower abdominal pain, unspecified (principal); K76.0 Fatty (change of) liver, not elsewhere classified; K44.9 Diaphragmatic hernia without obstruction or gangrene
CPT/HCPCS: 36415; 74176; 80053; 81001; 83690; 84702; 85025; 99284; J1885; J2405